=== PATIENT | male | born 1945 | race Caucasian/White ===

== ENCOUNTER 2024-09-03 10:17 | Outpatient (CLI) | payer OTHER | END 2024-09-03 10:18 | disposition home or self-care (01) | LOC: CSHLAB 10:17 | PROVIDERS: ATTEND Surgery | DX: Z01.818 Encounter for other preprocedural examination (principal); Z86.0101 Personal history of adenomatous and serrated colon polyps | CPT/HCPCS: 93005; 93010 ==